=== PATIENT | male | born 1995 | race Two or more races ===

== ENCOUNTER 2016-11-25 20:38 | Emergency (ER) | payer OTHER ==
[2016-11-25 20:49] VITALS: BP 146/88; PULSE 93; TEMP 98.1; BMI 38.5
--- NOTE | 2016-11-25 21:29 | PDOC ---
History of Present Illness - General History Source: Patient <Pradeep Dominguez - Last Filed: 11/26/16 00:44> - General History Source: Patient Exam Limitations: No Limitations - History of Present Illness Initial Comments: 11/25/16 22:05 The patient is a 21-year-old male, with a significant past medical history of hypertension, who presents to the emergency department with periumbilical abdominal pain that began 1 day ago. The patient describes the pain as sharp, non-radiating, and intermittent in nature. The patient states the pain is exacerbated with exertion and alleviated during rest. He denies nausea, vomiting , diarrhea, or constipation. He denies fever, chills, cough, headache, or dizziness. He denies dysuria, frequency, urgency, or hematuria. Allergies: None reported. Past Surgical History: None reported. Social History: Non-smoker. Denies alcohol or drug use. <Jeimy Bernal - Last Filed: 11/26/16 03:09> - General Chief Complaint: Pain Stated Complaint: PAIN Time Seen by Provider: 11/25/16 21:29 Past History - Past Medical History HTN: Yes - Immunization History Immunization Up to Date: Yes - Psycho/Social/Smoking Cessation Hx Anxiety: No Suicidal Ideation: No Smoking History: Never smoked Have you smoked in the past 12 months: No Number of Cigarettes Smoked Daily: 0 Cigars Per Day: 0 Hx Alcohol Use: No Drug/Substance Use Hx: No <Pradeep Dominguez - Last Filed: 11/26/16 00:44> <Jeimy Bernal - Last Filed: 11/26/16 03:09> - Past Medical History Allergies/Adverse Reactions: Allergies Allergy/AdvReac Type Severity Reaction Status Date / Time No Known Allergies Allergy Verified 11/25/16 20:48 Home Medications: Ambulatory Orders NK [No Known Home Medication] 11/24/15 Review of Systems - Review of Systems Able to Perform ROS?: Yes Comments:: 11/25/16 22:05 CONSTITUTIONAL: Absent: fever, no chills, no fatigue EYES: Absent: visual changes ENT: Absent: ear pain, no sore throat CARDIOVASCULAR: Absent: chest pain, no palpitations RESPIRATORY: Absent: cough, no SOB GI: Present: +abdominal pain Absent: no nausea, no vomiting, no constipation, no diarrhea GENITOURINARY: Absent: dysuria, no frequency, no hematuria MUSKULOSKELETAL: Absent: back pain, no arthralgia, no myalgia SKIN: Absent: rash NEURO: Absent: headache <Bernal,Deirdreshaegenegrabiel - Last Filed: 11/26/16 03:09> *Physical Exam - Vital Signs Last Vital Signs Temp Pulse Resp BP Pulse Ox 98.1 F 93 H 20 146/88 99 11/25/16 20:48 11/25/16 20:48 11/25/16 20:48 11/25/16 20:48 11/25/16 20:48 <Pradeep Dominguez - Last Filed: 11/26/16 00:44> - Vital Signs Last Vital Signs Temp Pulse Resp BP Pulse Ox 98.1 F 93 H 20 146/88 99 11/25/16 20:48 11/25/16 20:48 11/25/16 20:48 11/25/16 20:48 11/25/16 20:48 - Physical Exam Comments: 11/25/16 22:07 GENERAL: Well-appearing, well-nourished. No apparent distress. HEENT: Normocephalic, atraumatic. PERRL, EOM intact. CARDIOVASCULAR: Normal S1, S2. Regular rate and rhythm. PULMONARY: Clear to auscultation bilaterally. ABDOMEN: +Tenderness periumbilically, with no palpable masses. No rebound or guarding. No organomegaly. Normoactive bowel sounds. [place] sign negative EXTREMITIES: Normal ROM in all four extremities. No gross deformities. SKIN: Warm, dry. No rash NEUROLOGICAL: No focal neurological deficits. <Jeimy Bernal - Last Filed: 11/26/16 03:09> ED Treatment Course - LABORATORY CBC & Chemistry Diagram: 11/25/16 22:19 11/25/16 22:19 <Pradeep Dominguez - Last Filed: 11/26/16 00:44> - LABORATORY CBC & Chemistry Diagram: 11/25/16 22:19 11/25/16 22:19 - RADIOLOGY Radiograph Interpretation: 11/26/16 00:41 EXAM: Abdomen and pelvis CT with intravenous contrast INTERPRETED BY: Dr. Pisano REVIEWED BY: Dr. Dominguez IMPRESSION: A small umbilical hernia is seen containing fat only. The herniated fat demonstrates minimal to mild soft tissue stranding - due to inflammation. Multiple mildly prominent mesenteric lymph nodes are seen which are probably hyperplastic in nature. However correlation with 3 month follow-up MRI or CT is suggested to document stability and exclude developing pathology <Jeimy Bernal - Last Filed: 11/26/16 03:09> Medical Decision Making - Medical Decision Making 11/26/16 00:45 Dr. Dominguez: The scribe's documentation has been prepared under my direction and personally reviewed by me in its entirery. I confirm that the note above accurately reflects all work, treatment, procedures, and medical decision making performed by me. <Pradeep Dominguez - Last Filed: 11/26/16 00:44> *DC/Admit/Observation/Transfer - Discharge Dispostion Admit: No <Pradeep Dominguez - Last Filed: 11/26/16 00:44> - Attestations Scribe Attestion: 11/25/16 22:08 Documentation prepared by Jeimy Bernal, acting as medical appointment scheduler for Pradeep Dominguez DO. <Jeimy Bernal - Last Filed: 11/26/16 03:09> Diagnosis at time of Disposition: Umbilical hernia Qualifiers: Obstruction and gangrene presence: without obstruction or gangrene Qualified Code(s): K42.9 - Umbilical hernia without obstruction or gangrene - Discharge Dispostion Disposition: HOME Condition at time of disposition: Stable - Referrals Referrals: Tushar Connors MD [Staff Physician] - - Patient Instructions Printed Discharge Instructions: Abdominal Hernia, DI Umbilical Hernia-Child
[2016-11-25 22:22] LABS: EOSINOPHIL 1.6 % (0-4.5); MCH 28.1 pg (25.7-33.7); MCHC 33.4 g/dl (32.0-35.9); MEAN CELL VOLUME 84.1 fl (80-96); MEAN PLT VOLUME 8.4 fl (7.5-11.1); NEUTROPHILS 55.2 % (42.8-82.8); PLATELET COUNT 280 K/MM3 (134-434); RDW 13.2 % (11.9-15.9); WHITE BLOOD COUNT 8.9 K/mm3 (4.0-10.0)
[2016-11-25 23:07] LABS: ALBUMIN 3.8 g/dl (3.4-5.0); AMYLASE 48 U/L (25-115); ANION GAP 7 (8-16); BILIRUBIN,TOTAL 0.4 mg/dL (0.2-1.0); CALCIUM 8.8 mg/dL (8.5-10.1); CO2 30 mmol/L (21-32); GLUCOSE,RANDOM 105 mg/dL (74-106); MAGNESIUM 2.1 mg/dL (1.8-2.4); SGOT/AST 22 U/L (15-37); SGPT/ALT 46 U/L (12-78); TOT PROT 7.2 g/dl (6.4-8.2)
[2016-11-25 23:08] LABS: ALK PHOS 134 U/L (45-117)
== END 2016-11-26 00:49 | disposition home or self-care (01) ==
LOC: JER 20:38
DX: K42.9 Umbilical hernia without obstruction or gangrene (principal)
CPT/HCPCS: 36415; 74177-TC; 80053; 82150; 83690; 83735; 85025; 99283-25

== ENCOUNTER 2016-11-26 11:25 | Emergency (ER) | payer SELFPAY ==
[2016-11-26 11:33] VITALS: BP 137/79; PULSE 103; TEMP 97.5; BMI 38.5
== END 2016-11-26 13:00 | disposition left against medical advice (07) ==
LOC: JER 11:25
DX: Z53.21 Procedure and treatment not carried out due to patient leaving prior to being seen by health care provider (principal)
CPT/HCPCS: 99281-25

== ENCOUNTER 2021-09-25 16:14 | Emergency (ER) | payer OTHER ==
[2021-09-25 16:32] VITALS: TEMP 98.1; BMI 47.2
[2021-09-25 17:43] LABS: BASO % 0.6 % (0-2.0); EOS % 1.8 % (0-4.5); HEMOGLOBIN 13.5 GM/dL (11.7-16.9); LYMPH % 33.7 % (8-40); MCH 28.4 pg (25.7-33.7); MCHC 34.7 g/dl (32.0-35.9); MEAN PLT VOLUME 7.7 fl (7.5-11.1); MONO % 5.3 % (3.8-10.2); NEUT % 58.6 % (42.8-82.8); PLATELET COUNT 346 10^3/uL (134-434); RBC 4.76 M/mm3 (4.00-5.60); RDW 13.6 % (11.9-15.9); WHITE BLOOD COUNT 8.3 K/mm3 (4.0-10.0)
[2021-09-25 17:48] LABS: INR 1.14 (0.83-1.09); PROTHROMBIN TIME (PATIENT) 12.8 SEC (9.7-13.0)
[2021-09-25 17:51] LABS: ACTIVATED PTT 34.4 SECONDS (25.2-36.5)
[2021-09-25 17:58] LABS: CHLORIDE 105 mmol/L (98-107); SODIUM 138 mmol/L (136-145)
[2021-09-25 18:00] LABS: GLUCOSE,RANDOM 100 mg/dL (74-106)
[2021-09-25 18:01] LABS: ALBUMIN 3.7 g/dl (3.4-5.0); ANION GAP 7 MMOL/L (8-16); BLOOD UREA NITROGEN 14.3 mg/dL (7-18); CO2 27 mmol/L (21-32)
[2021-09-25 18:04] LABS: CREATININE 0.8 mg/dL (0.55-1.3); SGOT/AST 21 U/L (15-37); SGPT/ALT 43 U/L (13-61)
[2021-09-25 18:05] LABS: BILIRUBIN,TOTAL 0.6 mg/dL (0.2-1); TOT PROT 7.6 g/dl (6.4-8.2)
[2021-09-25 18:06] LABS: ALK PHOS 125 U/L (45-117)
[2021-09-25 18:48] VITALS: BP 133/72; PULSE 90
[2021-09-26 12:39] LABS: MAGNESIUM 1.8 mg/dL (1.8-2.4)
== END 2021-09-25 18:54 | disposition home or self-care (01) ==
LOC: JER 16:14
DX: R20.2 Paresthesia of skin (principal); I10 Essential (primary) hypertension
CPT/HCPCS: 36415; 70450-TC; 80053; 83735; 84484; 85025; 85610; 85730; 93005; 93010; 99284-25

== ENCOUNTER 2024-05-10 11:17 | Emergency (ER) | payer OTHER ==
[2024-05-10 11:30] VITALS: BP 109/57; PULSE 74; RESP 20; TEMP 98.7; BMI 26.8
[2024-05-10] MEDS ORDERED: ACETAMINOPHEN INJECTION 100 ML IVPB ONE (12:33)
[2024-05-10] MEDS: SODIUM CHLORIDE 0.9% 500 ML INFUS.BAG IV ONE (12:39)
[2024-05-10] MEDS: ACETAMINOPHEN 1000 MG/100 ML BAG IVPB ONE (12:39)
[2024-05-10 12:49] LABS: BASO % 0.3 % (0-2.0); EOS % 0.1 % (0-4.5); HEMATOCRIT 43.6 % (35.4-49); HEMOGLOBIN 15.1 GM/dL (11.7-16.9); LYMPH % 9.2 % (8-40); MCH 32.3 pg (25.7-33.7); MCHC 34.7 g/dl (32.0-35.9); MEAN CELL VOLUME 93.1 fl (80-96); MEAN PLT VOLUME 7.4 fl (7.5-11.1); MONO % 4.7 % (3.8-10.2); NEUT % 85.7 % (42.8-82.8); PLATELET COUNT 261 10^3/uL (134-434); RBC 4.68 M/mm3 (4.00-5.60); RDW 14.3 % (11.9-15.9); WHITE BLOOD COUNT 10.6 K/mm3 (4.0-10.0)
[2024-05-10 12:56] LABS: EPI CELLS >36 /uL (0-25.1); HYALINE CASTS 10 /uL (0-3.1); PH,URINE 5.5 (5.0-8.0); URINE APPEARANCE CLOUDY; URINE BACTERIA 12 /uL (0-1359); URINE BILIRUBIN NEGATIVE (NEGATIVE); URINE COLOR DK YELLOW; URINE GLUCOSE (UA) NEGATIVE (NEGATIVE); URINE KETONE TRACE (NEGATIVE); URINE LEUK ESTERASE NEGATIVE (NEGATIVE); URINE NITRITE NEGATIVE (NEGATIVE); URINE PROTEIN 2+ (NEGATIVE); URINE RBC 308 /uL (0-23.9)
[2024-05-10] MEDS: KETOROLAC TROMETHAMINE 30 MG/1 ML VIAL IVPUSH ONE (13:06)
[2024-05-10] MEDS ORDERED: KETOROLAC TROMETHAMINE 30 MG/1 ML VIAL ONE (13:07)
[2024-05-10 13:10] LABS: CALCIUM 8.5 mg/dL (8.5-10.1)
[2024-05-10 13:11] LABS: ALBUMIN 4.3 g/dl (3.4-5.0); BLOOD UREA NITROGEN 14.2 mg/dL (7-18)
[2024-05-10 13:14] LABS: CREATININE 0.9 mg/dL (0.55-1.3)
[2024-05-10 13:16] LABS: BILIRUBIN,TOTAL 2.1 mg/dL (0.2-1); TOT PROT 7.2 g/dl (6.4-8.2)
[2024-05-10 13:19] LABS: URINE WBC 66 /uL (0-25.8)
[2024-05-10] MEDS ORDERED: AZITHROMYCIN 500 MG TABLET ONE (16:19)
[2024-05-10] MEDS: AZITHROMYCIN 250 MG TABLET PO ONE (16:19)
== END 2024-05-10 16:39 | disposition home or self-care (01) ==
LOC: JER 11:17
PROC: 3E033NZ Introduction of Analgesics, Hypnotics, Sedatives into Peripheral Vein, Percutaneous Approach (ICD-10-PCS; principal; 2024-05-10)
PROC: 3E0333Z Introduction of Anti-inflammatory into Peripheral Vein, Percutaneous Approach (ICD-10-PCS; 2024-05-10)
DX: K52.9 Noninfective gastroenteritis and colitis, unspecified (principal); N30.91 Cystitis, unspecified with hematuria; R50.9 Fever, unspecified; R10.32 Left lower quadrant pain
CPT/HCPCS: 36415; 74177-TC; 80053; 81003; 85025; 87086; 87491; 87591; 99285-25; J0131; Q9967